=== PATIENT | male | born 1955 | race Caucasian/White ===

== ENCOUNTER 2016-09-25 19:55 | Inpatient (IN) | payer OTHER ==
[2016-09-25] MEDS ORDERED: SODIUM CHLORIDE 0.9% 500 ML IV STA (20:44)
--- NOTE | 2016-09-25 21:00 | ED ---
General Adult HPI <Xavi Navarro - Last Filed: 09/26/16 02:42> - General Source: EMS Mode of arrival: EMS Limitations: no limitations <Elda Emmanuel - Last Filed: 09/26/16 03:32> - General Chief complaint: Psychiatric Symptoms Stated complaint: Mental Health Time Seen by Provider: 09/25/16 20:15 - History of Present Illness Initial comments: 60-year-old male patient presents to emergency department today for evaluation after his neighbor called EMS due to concerns by his unsanitary living conditions. Neighbor states that patient seems to hallucinate and is often outside yelling at things that aren't there or people driving buying cars. Patient was found in his home with dried feces on his legs and in his shorts. Patient states that his house is filthy and that he has been depressed for the last 4 years. Patient states that 4 years ago his left him, shortly after he was laid off from his job and has been unable to find work since. Patient denies any suicidal or homicidal ideation. Patient denies any physical symptoms other than intermittent diarrhea. Patient admits to being intoxicated and drinking whiskey daily. He denies any headaches, dizziness, weakness, chest pain, back pain, abdominal pain, nausea, vomiting, constipation, hematuria , dysuria, urinary frequency, urinary urgency, fever, or chills. (Elda Emmanuel) - Related Data Allergies Allergy/AdvReac Type Severity Reaction Status Date / Time No Known Allergies Allergy Verified 09/25/16 19:57 Review of Systems ROS Other: All systems not noted in ROS Statement are negative. <Xavi Navarro - Last Filed: 09/26/16 02:42> ROS Other: All systems not noted in ROS Statement are negative. <Elda Emmanuel - Last Filed: 09/26/16 03:32> ROS Statement: Those systems with pertinent positive or pertinent negative responses have been documented in the HPI. Past Medical History Additional Past Medical History / Comment(s): Stent placement, incontinent of stool. History of Any Multi-Drug Resistant Organisms: None Reported Past Surgical History: No Surgical Hx Reported Past Psychological History: Depression Smoking Status: Current every day smoker Past Alcohol Use History: Abuse, Daily Past Drug Use History: Marijuana <Elda Emmanuel - Last Filed: 09/26/16 03:32> General Exam Limitations: no limitations General appearance: alert, in no apparent distress, appears intoxicated, other ( Thin appearing adult male) Head exam: Present: atraumatic, normocephalic, normal inspection Eye exam: Present: normal appearance, PERRL, EOMI, other. Absent: scleral icterus, conjunctival injection, periorbital swelling ENT exam: Present: normal exam, normal oropharynx, mucous membranes moist Neck exam: Present: normal inspection. Absent: tenderness, meningismus, lymphadenopathy Respiratory exam: Present: normal lung sounds bilaterally, wheezes (Scattered expiratory wheezes). Absent: respiratory distress, rales, rhonchi, stridor Cardiovascular Exam: Present: regular rate, normal rhythm, normal heart sounds. Absent: systolic murmur, diastolic murmur, rubs, gallop, clicks GI/Abdominal exam: Present: soft, normal bowel sounds. Absent: distended, tenderness, guarding, rebound, rigid Extremities exam: Present: normal inspection, full ROM, normal capillary refill , other (Dried feces on feet). Absent: tenderness, pedal edema, joint swelling , calf tenderness Back exam: Present: normal inspection Neurological exam: Present: alert, oriented X3, CN II-XII intact Psychiatric exam: Present: normal affect, normal mood Skin exam: Present: warm, dry, intact, normal color. Absent: rash <Elda Emmanuel - Last Filed: 09/26/16 03:32> Course <Xavi Navarro - Last Filed: 09/26/16 02:42> <Elda Emmanuel - Last Filed: 09/26/16 03:32> Vital Signs 09/25/16 09/25/16 09/26/16 19:58 23:43 02:04 Temperature 97.8 F 97.8 F Pulse Rate 64 64 89 Respiratory 15 16 18 Rate Blood Pressure 113/64 124/56 152/69 O2 Sat by Pulse 98 99 98 Oximetry 09/26/16 03:19 Temperature 98.4 F Pulse Rate 94 Respiratory 17 Rate Blood Pressure 156/67 O2 Sat by Pulse 97 Oximetry - Reevaluation(s) Reevaluation #1: 09/26/16 02:42 I did personally do a [id number] evaluation the patient. He was evaluated by the psychiatric service and found not to be a risk to himself at this time he is not suicidal or homicidal. He does however meet criteria for admission he is in the process of withdrawing from alcohol. He has had been withdrawals before. (Xavi Navarro) Reevaluation #2: 09/26/16 02:44 I did fill out a negative clinical certification (Xavi Navarro) Medical Decision Making - Lab Data Result diagrams: 09/25/16 21:10 09/25/16 21:10 <Xavi Navarro - Last Filed: 09/26/16 02:42> - Lab Data Result diagrams: 09/25/16 21:10 09/25/16 21:10 - Radiology Data Radiology results: report reviewed, image reviewed <Elda Emmanuel - Last Filed: 09/26/16 03:32> - Medical Decision Making 60-year-old male patient was brought in for mental health evaluation after neighbor called for concerns due to unsanitary living conditions. Baseline laboratory tests were completed and did show hypomagnesemia. Patient is chronic alcoholic. Once patient alcohol level was below the legal limit he was evaluated by EPS. Patient is not suicidal or homicidal at this time and nonicteric candidate for admission to the mental health unit. However at this time patient is withdrawing from alcohol. Patient will be admitted to observation for acute alcohol withdrawal. Magnesium will be replaced. (Elda Emmanuel) - Lab Data Lab Results 09/25/16 09/25/16 09/25/16 Range/Units 21:10 21:10 23:40 WBC 6.7 (3.8-10.6) k/uL RBC 4.18 L (4.30-5.90) m/uL Hgb 14.2 (13.0-17.5) gm/dL Hct 43.5 (39.0-53.0) % MCV 104.1 H (80.0-100.0) fL MCH 34.0 (25.0-35.0) pg MCHC 32.7 (31.0-37.0) g/dL RDW 14.2 (11.5-15.5) % Plt Count 153 (150-450) k/uL Neutrophils % 82 % Lymphocytes % 7 % Monocytes % 7 % Eosinophils % 1 % Basophils % 1 % Neutrophils # 5.5 (1.3-7.7) k/uL Lymphocytes # 0.5 L (1.0-4.8) k/uL Monocytes # 0.4 (0-1.0) k/uL Eosinophils # 0.0 (0-0.7) k/uL Basophils # 0.1 (0-0.2) k/uL Macrocytosis Slight Sodium 145 (137-145) mmol/L Potassium 4.3 (3.5-5.1) mmol/L Chloride 101 (98-107) mmol/L Carbon Dioxide 12 L (22-30) mmol/L Anion Gap 32 mmol/L BUN 18 (9-20) mg/dL Creatinine 0.60 L (0.66-1.25) mg/dL Est GFR (MDRD) Af Amer >60 (>60 ml/min/1.73 sqM) Est GFR (MDRD) Non-Af >60 (>60 ml/min/1.73 sqM) Glucose 78 (74-99) mg/dL Calcium 8.9 (8.4-10.2) mg/dL Magnesium 1.3 L (1.6-2.3) mg/dL Total Bilirubin 1.2 (0.2-1.3) mg/dL AST 127 H (17-59) U/L ALT 47 (21-72) U/L Alkaline Phosphatase 133 H (38-126) U/L Total Protein 7.0 (6.3-8.2) g/dL Albumin 4.5 (3.5-5.0) g/dL Urine Color Yellow Urine Appearance Clear (Clear) Urine pH 5.5 (5.0-8.0) Ur Specific Dawson 1.016 (1.001-1.035) Urine Protein 1+ H (Negative) Urine Glucose (UA) Negative (Negative) Urine Ketones 4+ H (Negative) Urine Blood Moderate H (Negative) Urine Nitrite Negative (Negative) Urine Bilirubin Negative (Negative) Urine Urobilinogen <2.0 (<2.0) mg/dL Ur Leukocyte Esterase Negative (Negative) Urine RBC 2 (0-5) /hpf Urine WBC <1 (0-5) /hpf Ur Squamous Epith Cells 1 (0-4) /hpf Urine Mucus Rare H (None) /hpf Urine Opiates Screen Not Detected (NotDetected) Ur Oxycodone Screen Not Detected (NotDetected) Urine Methadone Screen Not Detected (NotDetected) Ur Propoxyphene Screen Not Detected (NotDetected) Ur Barbiturates Screen Not Detected (NotDetected) U Tricyclic Antidepress Not Detected (NotDetected) Ur Phencyclidine Scrn Not Detected (NotDetected) Ur Amphetamines Screen Not Detected (NotDetected) U Methamphetamines Scrn Not Detected (NotDetected) U Benzodiazepines Scrn Not Detected (NotDetected) Urine Cocaine Screen Not Detected (NotDetected) U Marijuana (THC) Screen Detected H (NotDetected) - Radiology Data Two-view x-ray of the chest was obtained and showed underlying emphysematous changes with flattened hemidiaphragms redemonstrated. There is no focal air space opacity, pleural effusion, or pneumothorax seen. The cardiac silhouette size is within normal limits. The osseous structures are intact. Impression by Dr. Bae reveals no acute cardio transportation planner process. No significant change from prior. (Elda Emmanuel) Disposition <Xavi Navarro - Last Filed: 09/26/16 02:42> Decision to Admit Reason: Admit from EC Decision Date: 09/26/16 Decision Time: 02:59 <Elda Emmanuel - Last Filed: 09/26/16 03:32> Clinical Impression: Alcohol intoxication, Alcohol withdrawal, Dehydration, Hypomagnesemia syndrome Disposition: ADMITTED IP TO THIS HOSP Condition: Fair
[2016-09-25] MEDS: SODIUM CHLORIDE 0.9% 1,000 ML with MVI, ADULT NO.4 WITH VIT K 10 ML, THIAMINE 100 MG, F... IV ONE ×8 (21:08→21:21)
--- NOTE | 2016-09-25 21:20 | XR ---
EXAMINATION TYPE: XR chest 2V DATE OF EXAM: 09/25/2016 COMPARISON: Chest x-ray October 21, 2009. HISTORY: Chest pain per order. TECHNIQUE: Frontal and lateral views of the chest are obtained. FINDINGS: Underlying emphysematous change is not excluded with flattened hemidiaphragms redemonstrate d. There is no focal air space opacity, pleural effusion, or pneumothorax seen. The cardiac silhouet te size is within normal limits. The osseous structures are intact. IMPRESSION: No acute cardiopulmonary process. No significant change from prior.
[2016-09-25 21:22] LABS: Basophils # (A) 0.1 k/uL (0-0.2); Basophils % (A) 1 %; CHCM 31.8; Eosinophils % (A) 1 %; HCT 43.5 % (39.0-53.0); HDW 2.02; HGB 14.2 gm/dL (13.0-17.5); Luc # (Auto) 0.18; Luc % (Auto) 3; Lymphocytes # (A) 0.5 k/uL (1.0-4.8); Lymphocytes % (A) 7 %; MCHC 32.7 g/dL (31.0-37.0); MCV 104.1 fL (80.0-100.0); Macrocytosis Slight; Mean Platelet Volume 7.5; Monocytes # (A) 0.4 k/uL (0-1.0); Monocytes % (A) 7 %; Neutrophils # (A) 5.5 k/uL (1.3-7.7); Neutrophils % (A) 82 %; RBC 4.18 m/uL (4.30-5.90); RDW 14.2 % (11.5-15.5); WBC 6.7 k/uL (3.8-10.6); WBC (Perox) 6.68
[2016-09-25 21:34] LABS: ALT 47 U/L (21-72); AST 127 U/L (17-59); Alkaline Phosphatase 133 U/L (38-126); Anion Gap 32 mmol/L; Blood Urea Nitrogen 18 mg/dL (9-20); Calcium 8.9 mg/dL (8.4-10.2); Carbon Dioxide 12 mmol/L (22-30); Chloride 101 mmol/L (98-107); Glucose 78 mg/dL (74-99); Magnesium 1.3 mg/dL (1.6-2.3); Non-African American GFR(MDRD) >60 (>60 ml/min/1.73 sqM); Potassium 4.3 mmol/L (3.5-5.1); Sodium 145 mmol/L (137-145); Total Bilirubin 1.2 mg/dL (0.2-1.3)
[2016-09-25 23:54] LABS: Appearance,Urine Clear (Clear); Bilirubin,Urine Negative (Negative); Glucose,Urine (UA) Negative (Negative); Ketones,Urine 4+ (Negative); Leukocyte Esterase,Urine Negative (Negative); Mucus,Urine Rare /hpf; Nitrite,Urine Negative (Negative); PH, Urine 5.5 (5.0-8.0); Particle Count 1634; Protein,Urine 1+ (Negative); RBC,Urine 2 /hpf (0-5); Specific Gravity,Urine 1.016 (1.001-1.035); Squamous Epithelial Cell,Urine 1 /hpf (0-4); UA Billing (MACRO vs. MICRO) MICRO; Urobilinogen,Urine <2.0 mg/dL (<2.0); WBC,Urine <1 /hpf (0-5)
[2016-09-26] MEDS ORDERED: NALOXONE 0.4 MG/ML 1 ML VIAL IV PRN (02:52)
[2016-09-26] MEDS ORDERED: LORazepam 2 MG/ML SYRINGE IV PRN (02:54)
[2016-09-26] MEDS ORDERED: Magnesium Replacement Protocol 1 EACH MISC MISCELLANE PRN (02:57)
[2016-09-26] MEDS: MAGNESIUM SULFATE-D5W PMX 1 GM in DEXTROSE/WATER 1 100ML.BAG IVPB SCH ×3 (04:38→09:06)
[2016-09-26] MEDS ORDERED: ONDANSETRON 4 MG/2 ML VIAL IVP PRN (06:35)
[2016-09-26] MEDS: LORazepam 2 MG/ML SYRINGE IV PRN ×4 (11:58→22:21)
[2016-09-26] MEDS ORDERED: SODIUM CHLORIDE 0.9% 1,000 ML IV SCH (14:15)
--- NOTE | 2016-09-26 15:16 | P.HPIM ---
History of Present Illness 60-year-old alcohol ache was brought in after he was petitioned by the neighbors as he was found in stools at home. Patient is completely confused, unsure whether it's because of Ativan for alcohol withdrawal are actually Wernicke's encephalopathy. Patient will be started on thiamine unable to get any history from now as he is confused. Patient was apparently having intermittent diarrhea patient when he came in was intoxicated. Patient apparently drinks 1 pint of hard liquor every day Review of Systems Unable to pain due to his clinical condition Past Medical History Additional Past Medical History / Comment(s): Stent placement, incontinent of stool. History of Any Multi-Drug Resistant Organisms: None Reported Past Surgical History: No Surgical Hx Reported Past Psychological History: Depression Smoking Status: Current every day smoker Past Alcohol Use History: Abuse, Daily Past Drug Use History: Marijuana Medications and Allergies Home Medications Medication Instructions Recorded Confirmed Type No Known Home Medications [No 09/26/16 09/26/16 History Known Home Medications] Allergies Allergy/AdvReac Type Severity Reaction Status Date / Time No Known Allergies Allergy Verified 09/26/16 09:05 Physical Exam Vitals: Vital Signs Temp Pulse Pulse Resp BP BP Pulse Ox 09/26/16 07:00 97.8 F 78 18 138/54 98 09/26/16 04:20 98.8 F 99 18 152/78 93 L 09/26/16 03:19 98.4 F 94 17 156/67 97 09/26/16 02:04 97.8 F 89 18 152/69 98 09/25/16 23:43 64 16 124/56 99 09/25/16 19:58 97.8 F 64 15 113/64 98 Intake and Output 09/26/16 09/26/16 09/26/16 06:59 14:59 22:59 Other: Voiding Method Diaper Diaper Incontinent Incontinent # Voids 0 PHYSICAL EXAMINATION: GENERAL: The patient is alert and confused, not in any acute distress. Thin built HEENT: Pupils are round and equally reacting to light. EOMI. No scleral icterus. No conjunctival pallor. Normocephalic, atraumatic. No pharyngeal erythema. No thyromegaly. CARDIOVASCULAR: S1 and S2 present. No murmurs, rubs, or gallops. PULMONARY: Chest is clear to auscultation, no wheezing or crackles. ABDOMEN: Soft, nontender, nondistended, normoactive bowel sounds. No palpable organomegaly. MUSCULOSKELETAL: No joint swelling or deformity. EXTREMITIES: No cyanosis, clubbing, or pedal edema. NEUROLOGICAL: Gross neurological examination did not reveal any focal deficits. Completely confused SKIN: No rashes. Results CBC & Chem 7: 09/25/16 21:10 09/25/16 21:10 Labs: Abnormal Lab Results - Last 24 Hours (Table) 09/25/16 09/25/16 09/25/16 Range/Units 21:10 21:10 23:40 RBC 4.18 L (4.30-5.90) m/uL MCV 104.1 H (80.0-100.0) fL Lymphocytes # 0.5 L (1.0-4.8) k/uL Carbon Dioxide 12 L (22-30) mmol/L Creatinine 0.60 L (0.66-1.25) mg/dL Magnesium 1.3 L (1.6-2.3) mg/dL AST 127 H (17-59) U/L Alkaline Phosphatase 133 H (38-126) U/L Urine Protein 1+ H (Negative) Urine Ketones 4+ H (Negative) Urine Blood Moderate H (Negative) Urine Mucus Rare H (None) /hpf U Marijuana (THC) Screen Detected H (NotDetected) Thrombosis Risk Factor Assmnt - Choose All That Apply Each Risk Factor Represents 2 Points: Age 61-74 years Other congenital or acquired thrombophilia - If yes, enter type in comment: No Thrombosis Risk Factor Assessment Total Risk Factor Score: 2 Thrombosis Risk Factor Assessment Level: Low Risk Assessment and Plan Plan: #1 alcohol intoxication #2 metabolic encephalopathy and toxic encephalopathy from excess alcohol use. #3 alcohol withdrawal: Patient will be monitored for all call withdrawal patient will be on Ativan CIWA protocol. #4 anion gap metabolic acidosis: Secondary to excessive alcohol in the system, patient's lactic acid is within normal limits. Patient will be on D5 half- normal saline at 1 25 mL/h. #4 alcoholic hepatitis #5 hypomagnesemia: Secondary to excess alcohol use which will be supplemented #6 ketonuria: Secondary to starvation ketosis #7 macrocytosis secondary to excess alcohol use Patient will be continued on D5 half-normal saline, thiamine multivitamin supplementation and Ativan withdrawal precautions
[2016-09-26] MEDS ORDERED: SODIUM CHLORIDE 0.9% 1,000 ML BAG ONE (15:51)
[2016-09-26] MEDS: 1: MVI, ADULT NO.4 WITH VIT K 10 ML, THIAMINE 100 MG, FOLIC ACID 1 MG in SODIUM CHLORIDE IV SCH ×4 (15:51)
[2016-09-26] MEDS: THIAMINE 100 MG TAB PO SCH (15:52)
[2016-09-26] MEDS: DEXTROSE 5%-0.45% NACL 1,000 ML IV SCH (15:52)
[2016-09-27] MEDS: 1: MVI, ADULT NO.4 WITH VIT K 10 ML, THIAMINE 100 MG, FOLIC ACID 1 MG in SODIUM CHLORIDE IV SCH ×8 (02:19→12:01)
[2016-09-27] MEDS: DEXTROSE 5%-0.45% NACL 1,000 ML IV SCH ×3 (04:47→14:42)
[2016-09-27 09:00] LABS: CH 33.7; CHCM 32.6; HCT 35.5 % (39.0-53.0); HDW 2.02; HGB 11.9 gm/dL (13.0-17.5); MCH 34.6 pg (25.0-35.0); MCHC 33.5 g/dL (31.0-37.0); MCV 103.5 fL (80.0-100.0); Macrocytosis Slight; Mean Platelet Volume 9.3; RBC 3.43 m/uL (4.30-5.90); RDW 14.4 % (11.5-15.5); WBC 6.3 k/uL (3.8-10.6)
[2016-09-27 09:05] LABS: ALT 38 U/L (21-72); AST 85 U/L (17-59); Alkaline Phosphatase 98 U/L (38-126); Anion Gap 17 mmol/L; Blood Urea Nitrogen 9 mg/dL (9-20); Calcium 8.4 mg/dL (8.4-10.2); Carbon Dioxide 20 mmol/L (22-30); Chloride 97 mmol/L (98-107); Glucose 152 mg/dL (74-99); Magnesium 1.4 mg/dL (1.6-2.3); Non-African American GFR(MDRD) >60 (>60 ml/min/1.73 sqM); Potassium 3.4 mmol/L (3.5-5.1); Sodium 134 mmol/L (137-145); Total Bilirubin 1.8 mg/dL (0.2-1.3); Total Protein 5.7 g/dL (6.3-8.2)
[2016-09-27] MEDS: MAGNESIUM SULFATE-D5W PMX 1 GM in DEXTROSE/WATER 1 100ML.BAG IVPB SCH ×3 (11:03→14:41)
[2016-09-27] MEDS ORDERED: POTASSIUM CHLORIDE ER 20 MEQ TAB.ER PO ONE (12:00)
[2016-09-27] MEDS ORDERED: SODIUM CHLORIDE 0.9% 1,000 ML BAG ONE (12:01)
[2016-09-27] MEDS: THIAMINE 100 MG TAB PO SCH ×2 (12:06→17:23)
--- NOTE | 2016-09-27 14:21 | P.PN ---
Progress Note - Text I attempted to see this patient for a psychiatric consultation however the patient was not able to respond to questions to achieve an evaluation. I will return tomorrow to evaluate the patient to see if he is better able to cooperate. Currently patient has symptoms of delirium and was only oriented to person. I spoke with social work who had seen the patient earlier today and and agree with decision to seek guardianship. Per the information on the chart regarding how the patient came to the hospital he was petitioned by his neighbors who found him in a home sitting in feces. Patient has not been seen here since 2009.
[2016-09-27] MEDS: LORazepam 2 MG/ML SYRINGE IV PRN (14:42)
--- NOTE | 2016-09-27 15:57 | P.PN ---
Subjective Patient is still having significant withdrawals unable to obtain any History from the patient. Physical therapy evaluated the patient and patient was evaluated by psychiatric and they're recommending guardianship. Objective - Vital Signs Vital signs: Vital Signs Temp 97.3 F L 09/27/16 14:38 Pulse 110 H 09/27/16 14:38 Resp 20 09/27/16 14:38 BP 121/87 09/27/16 14:38 Pulse Ox 97 09/27/16 14:38 Intake & Output 09/26/16 09/27/16 09/27/16 18:59 06:59 18:59 Intake Total 1561.2 700 Balance 1561.2 700 Intake: Intake, IV Titration 1011.2 700 Amount Dextrose 5%-0.45% NaCl 1, 400 000 ml @ 125 mls/hr IV . Q8H HANDY Rx#:[id number] Magnesium Sulfate-D5w Pmx 300 1 gm In Dextrose/Water 1 100ml.bag @ 100 mls/hr IVPB Q1H HANDY Rx#: [id number] Mvi, Adult No.4 with Vit 1011.2 K 10 ml Thiamine 100 mg Folic Acid 1 mg In Sodium Chloride 0.9% 1,000 ml @ 100 mls/hr IV .BY DURATION HANDY Rx#: [id number] Oral 550 Other: Voiding Method Diaper Diaper Diaper Incontinent Incontinent Incontinent # Voids 3 3 4 # Bowel Movements 2 2 - Exam PHYSICAL EXAMINATION: GENERAL: The patient is alert and confused, not in any acute distress. Thin built HEENT: Pupils are round and equally reacting to light. EOMI. No scleral icterus. No conjunctival pallor. Normocephalic, atraumatic. No pharyngeal erythema. No thyromegaly. CARDIOVASCULAR: S1 and S2 present. No murmurs, rubs, or gallops. PULMONARY: Chest is clear to auscultation, no wheezing or crackles. ABDOMEN: Soft, nontender, nondistended, normoactive bowel sounds. No palpable organomegaly. MUSCULOSKELETAL: No joint swelling or deformity. EXTREMITIES: No cyanosis, clubbing, or pedal edema. NEUROLOGICAL: Gross neurological examination did not reveal any focal deficits. Completely confused SKIN: No rashes. - Labs CBC & Chem 7: 09/27/16 08:21 09/27/16 08:21 Labs: Abnormal Lab Results - Last 24 Hours (Table) 09/27/16 09/27/16 Range/Units 08:21 08:21 RBC 3.43 L (4.30-5.90) m/uL Hgb 11.9 L (13.0-17.5) gm/dL Hct 35.5 L (39.0-53.0) % MCV 103.5 H (80.0-100.0) fL Plt Count 96 L (150-450) k/uL Sodium 134 L (137-145) mmol/L Potassium 3.4 L (3.5-5.1) mmol/L Chloride 97 L (98-107) mmol/L Carbon Dioxide 20 L (22-30) mmol/L Creatinine 0.39 L (0.66-1.25) mg/dL Glucose 152 H (74-99) mg/dL Magnesium 1.4 L (1.6-2.3) mg/dL Total Bilirubin 1.8 H (0.2-1.3) mg/dL AST 85 H (17-59) U/L Total Protein 5.7 L (6.3-8.2) g/dL Albumin 3.4 L (3.5-5.0) g/dL Assessment and Plan Plan: #1 alcohol intoxication #2 metabolic encephalopathy and toxic encephalopathy from excess alcohol use. #3 alcohol withdrawal: Patient will be monitored for all call withdrawal patient will be on Ativan CIWA protocol. #4 anion gap metabolic acidosis: Secondary to excessive alcohol in the system, patient's lactic acid is within normal limits. Patient will be on D5 half- normal saline at 1 25 mL/h. #4 alcoholic hepatitis #5 hypomagnesemia: Secondary to excess alcohol use which will be supplemented #6 ketonuria: Secondary to starvation ketosis #7 macrocytosis secondary to excess alcohol use #8 valid to the patient and the regarding guardianship an outpatient.
[2016-09-27] MEDS: SODIUM CHLORIDE 0.9% 1,000 ML IV SCH (17:23)
[2016-09-28] MEDS: LORazepam 2 MG/ML SYRINGE IV PRN ×2 (00:27→05:19)
[2016-09-28] MEDS: SODIUM CHLORIDE 0.9% 1,000 ML IV SCH ×3 (05:18→19:58)
[2016-09-28 09:11] LABS: ALT 36 U/L (21-72); AST 84 U/L (17-59); Alkaline Phosphatase 98 U/L (38-126); Anion Gap 14 mmol/L; Blood Urea Nitrogen 8 mg/dL (9-20); Calcium 8.7 mg/dL (8.4-10.2); Carbon Dioxide 19 mmol/L (22-30); Chloride 99 mmol/L (98-107); Glucose 83 mg/dL (74-99); Magnesium 1.6 mg/dL (1.6-2.3); Non-African American GFR(MDRD) >60 (>60 ml/min/1.73 sqM); Potassium 3.7 mmol/L (3.5-5.1); Sodium 132 mmol/L (137-145); Total Bilirubin 1.9 mg/dL (0.2-1.3); Total Protein 5.8 g/dL (6.3-8.2)
[2016-09-28] MEDS: THIAMINE 100 MG TAB PO SCH ×2 (11:02→15:18)
--- NOTE | 2016-09-28 12:39 | P.PN ---
Subjective Patient is still having significant withdrawals unable to obtain any History from the patient. Physical therapy evaluated the patient and patient was evaluated by psychiatric and they're recommending guardianship. 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 Patient is awaiting to go to subacute rehabilitation awaiting guardianship today. Objective - Vital Signs Vital signs: Vital Signs Temp 98.0 F 09/28/16 07:00 Pulse 99 09/28/16 07:00 Resp 18 09/28/16 07:00 BP 121/95 09/28/16 07:00 Pulse Ox 94 L 09/27/16 23:00 Intake & Output 09/27/16 09/28/16 09/28/16 18:59 06:59 18:59 Intake Total 1240 850 Balance 1240 850 Weight 49.895 kg Intake: Intake, IV Titration 700 Amount Dextrose 5%-0.45% NaCl 1, 400 000 ml @ 125 mls/hr IV . Q8H HANDY Rx#:[id number] Magnesium Sulfate-D5w Pmx 300 1 gm In Dextrose/Water 1 100ml.bag @ 100 mls/hr IVPB Q1H HANDY Rx#: [id number] Oral 540 850 Other: Voiding Method Diaper Diaper Diaper Incontinent Incontinent Incontinent # Voids 3 8 # Bowel Movements 2 6 - Exam PHYSICAL EXAMINATION: GENERAL: The patient is alert and confused, not in any acute distress. Thin built HEENT: Pupils are round and equally reacting to light. EOMI. No scleral icterus. No conjunctival pallor. Normocephalic, atraumatic. No pharyngeal erythema. No thyromegaly. CARDIOVASCULAR: S1 and S2 present. No murmurs, rubs, or gallops. PULMONARY: Chest is clear to auscultation, no wheezing or crackles. ABDOMEN: Soft, nontender, nondistended, normoactive bowel sounds. No palpable organomegaly. MUSCULOSKELETAL: No joint swelling or deformity. EXTREMITIES: No cyanosis, clubbing, or pedal edema. NEUROLOGICAL: Gross neurological examination did not reveal any focal deficits. Completely confused SKIN: No rashes. - Labs CBC & Chem 7: 09/27/16 08:21 09/28/16 08:07 Labs: Abnormal Lab Results - Last 24 Hours (Table) 09/28/16 Range/Units 08:07 Sodium 132 L (137-145) mmol/L Carbon Dioxide 19 L (22-30) mmol/L BUN 8 L (9-20) mg/dL Creatinine 0.39 L (0.66-1.25) mg/dL Total Bilirubin 1.9 H (0.2-1.3) mg/dL AST 84 H (17-59) U/L Total Protein 5.8 L (6.3-8.2) g/dL Albumin 3.3 L (3.5-5.0) g/dL Assessment and Plan Plan: #1 alcohol intoxication #2 metabolic encephalopathy and toxic encephalopathy from excess alcohol use. Improved patient does have chronic encephalopathy and memory issues secondary to chronic alcoholism and I do not believe high-dose thiamine will and if it is encephalopathy. #3 alcohol withdrawal: Patient will be monitored for all call withdrawal patient will be on Ativan [place] protocol. Withdrawals are better #4 anion gap metabolic acidosis: Secondary to excessive alcohol in the system, patient's lactic acid is within normal limits. Patient will be on D5 half- normal saline at 1 25 mL/h. #4 alcoholic hepatitis #5 hypomagnesemia: Secondary to excess alcohol use which will be supplemented #6 ketonuria: Secondary to starvation ketosis #7 macrocytosis secondary to excess alcohol use
--- NOTE | 2016-09-28 13:00 | P.CN ---
Psychiatric Consult - . Consult date: 09/28/16 Consult:: 09/28/16 12:32 Identification and Reason for Consult: Patient is a 60-year-old male who was brought to the hospital after the neighbors petitioned the patient due to finding him in his home in his own feces. Consult was requested due to confusion and hallucinations and consideration of the need for guardianship. I attempted to see the patient yesterday however he was to confused to participate in the interview and I returned today after speaking with the high school social studies teacher yesterday. Patient was seen alone in his room no family members were present. Patient's chart was reviewed. History of Present Illness: Patient was admitted after being found by his neighbors in his home in his own feces. Patient is currently withdrawing from alcohol. When I spoke with the high school social studies teacher yesterday she stated that the patient lives alone and his left him 4 years ago and the patient has no contacts listed in the chart. Patient was in his hospital bed and was interviewed. Patient states that he is here to get well but could not tell me what illness he had. Patient states that he was living alone and states that he had stopped drinking alcohol and had withdrawals. Patient states that he was driving himself to the store and I asked him if he had run out of alcohol and he thought he had. Patient is a poor historian. Patient states that he was at [facility] 3 months ago and returned home in July. He states that he has been in rehab for time in the past year. Patient was unable to give any further information regarding his prior alcohol treatment and states that he took himself there. Patient reports that he was drinking about a pint a day but states he was in withdrawals at home because he ran out of alcohol. Patient is unable to elaborate further. Past Psychiatric History: Patient states that he was seen after his divorce for depression and he thought this was last year and states he was on an unknown antidepressant. He reports that he has been in alcohol rehab in the past but could not tell me how many times and states he's been at [facility] and [facility] and reports he was last at [facility] 3 months ago. Past Medical/Surgical History: Patient confirms that he had stents placed, the rest of his medical history is obtained from the chart hypertension, coronary artery disease is unable to tell me if he has had any surgeries in the past. Current Medications Sodium Chloride (Saline 0.9%) 1,000 mls @ 100 mls/hr IV .Q10H [facility] Last Admin: 09/28/16 11:03 Dose: 100 mls/hr Lorazepam (Ativan) 1 mg IV Q2HR PRN PRN Reason: CIWA 8 or 9 Last Admin: 09/28/16 05:19 Dose: 1 mg Lorazepam (Ativan) 1 mg IV Q1HR PRN PRN Reason: CIWA 10 to 15 Last Admin: 09/26/16 18:20 Dose: 1 mg Miscellaneous Information (Magnesium Per Protocol) 1 each MISCELLANE DAILY PRN ; Protocol PRN Reason: Per Protocol Naloxone HCl (Narcan) 0.2 mg IV Q2M PRN PRN Reason: Opioid Reversal Ondansetron HCl (Zofran) 4 mg IVP Q6HR PRN PRN Reason: Nausea And Vomiting Thiamine HCl (Vitamin B-1) 100 mg PO BID@1200,1700 [facility] Last Admin: 09/28/16 11:02 Dose: 100 mg Family History: Unable to obtain as the patient is not able to give this information. Social History: Patient states he lives alone, he states he was a year ago from his and has 2 children and 2 granddaughters states he has contact somewhat with his children. 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 Patient was unable to give any further social history. Substance Use History: Patient states that he's been using a pint a day of alcohol further information regarding his use as not obtainable from the patient and he states he uses marijuana every 6 months to ease the pain, he denied any other substance use. Legal History: Unable to obtain Mental Status: Appearance/Attitude: Patient is a 60-year-old male who appears older than his stated age, appears malnourished, made intermittent eye contact and is difficult to determine if he had hearing difficulties or not as I needed to speak loudly and close to the patient for him to hear me. Behavior: Patient was not exhibiting any psychomotor agitation. He was not perspiring and did not appear tremulous. Speech/Language: Patient only responded to my questions, his speech was somewhat garbled and he spoke in a soft voice. Thought Process: Patient needed to have questions repeated at times his answers were not relevant him unable to determine if this is because he did not understand the question or could not hear the question, after repeating some questions several times his answers were more relevant. Thought Content: Patient denied auditory hallucinations and stated that he was not seeing things and denied that he had been, patient did not appear to be responding to internal stimuli, nor did he appear to be having visual hallucinations. No delusions or paranoid ideation were elicited. Patient stated that he was here to get well, but could not tell me for what illness he was being treated. Patient reported that he had been withdrawing at home from alcohol and states it was due to his running out of alcohol. Patient states he lives alone and was caring for his ADLs, that he was driving to the store to go shopping. Suicidal/Homicidal Ideation: Patient denied any suicidal thoughts or homicidal thoughts at this time. Sensorium/Cognition: Patient was alert, there is no disturbance of his awareness and he was oriented to person, stated he was at [facility], could not name the month but thought it was Fall and the year was 1977. When asked how old patient was he responded 61, stated his birthday was 10/07/1965. Patient after 2 attempts was able to repeat 3 items after me but was unable to recall any of them. When asked what city we were in he responded [place]. Mood/Affect: Patient's mood is blunted as is his affect. Insight/Judgement: Patient's insight and judgment are impaired. Assessment: Patient is a poor historian and some information was obtained from the chart, patient was last admitted in 2009 and at that time stents were placed. When I spoke with the high school social studies teacher she informed me that the patient's had left him 4 years ago and it he does live alone there are no contacts listed on the chart. Patient is alert today, denying visual hallucinations and there is no disturbance of his awareness although he remains disoriented to date and location. Patient was reporting seeing a dog in his room yesterday which he is no longer doing today. His delirium appears to be resolving. Diagnosis: Alcohol withdrawal delirium, resolving; alcohol use disorder Plan: Patient was seen today and was alert with no alteration in his attention or awareness during the interview however the patient continues to have difficulty providing any historical information. Patient remains disoriented to time and city but is oriented to person and situation. Patient was unable to tell me why he was in the hospital only stating "to get well". Patient states that he ran out of alcohol at home and began to have withdrawals but is unable to report to me what connection that had with his coming into the hospital. Patient appears thin and malnourished, was found at home by neighbors in his own feces and so it is questionable how well this gentleman was caring for his ADLs prior to admission. Patient's delirium appears to be resolving but he has no understanding of why he is in the hospital, he does report prior alcohol treatment of his own volition but restarts using alcohol soon after discharge. After seeing the patient today I continue to feel that a guardian should be appointed due to the patient's inability to care for his ADLs as evidenced by his malnourished state and the condition in which he was found at home. 09/28/16 12:33 09/28/16 12:52
[2016-09-29] MEDS: SODIUM CHLORIDE 0.9% 1,000 ML IV SCH ×2 (08:00→16:23)
--- NOTE | 2016-09-29 09:23 | P.DS ---
Providers Date of admission: 09/26/16 02:35 Attending physician: Melly Moulton Consults: 09/27/16 11:44 Consult Physician Urgent Consulting Provider: Dena Barboza Consult Reason/Comments: confusion/hallucinations, need for guardianship Do you want consulting provider notified?: Yes Primary care physician: Stated None Hospital Course: Patient is still having significant withdrawals unable to obtain any History from the patient. Physical therapy evaluated the patient and patient was evaluated by psychiatric and they're recommending guardianship. 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 Patient is awaiting to go to subacute rehabilitation awaiting guardianship today. 09/29/2016 Patient's withdrawal significant improved patient confusion improved as well patient is alert oriented 2 today. Patient to be discharged to subacute recommendation. Patient does have tachycardia probably related to his chronic alcohol use and some withdrawal but for workup for his sinus tachycardia with a d-dimer and a TSH and d-dimer is elevated we'll obtain a CT to rule out pulmonary embolism with that is negative patient will be discharged today. PHYSICAL EXAMINATION: GENERAL: The patient is alert and oriented x2, not in any acute distress. Well developed, well nourished. HEENT: Pupils are round and equally reacting to light. EOMI. No scleral icterus. No conjunctival pallor. Normocephalic, atraumatic. No pharyngeal erythema. No thyromegaly. CARDIOVASCULAR: S1 and S2 present. No murmurs, rubs, or gallops. PULMONARY: Chest is clear to auscultation, no wheezing or crackles. ABDOMEN: Soft, nontender, nondistended, normoactive bowel sounds. No palpable organomegaly. MUSCULOSKELETAL: No joint swelling or deformity. EXTREMITIES: No cyanosis, clubbing, or pedal edema. NEUROLOGICAL: Gross neurological examination did not reveal any focal deficits. SKIN: No rashes. #1 alcohol intoxication #2 metabolic encephalopathy and toxic encephalopathy from excess alcohol use. Improved patient does have chronic encephalopathy and memory issues secondary to chronic alcoholism and I do not believe high-dose thiamine will and if it is encephalopathy. #3 alcohol withdrawal: Withdrawal symptoms improved patient requirement for Ativan is significantly low #4 anion gap metabolic acidosis: Resolved now #4 alcoholic hepatitis #5 hypomagnesemia: Improved with supplementation #6 ketonuria: Secondary to starvation ketosis #7 macrocytosis secondary to excess alcohol use Patient Condition at Discharge: Fair Plan - Discharge Summary New Discharge Prescriptions: New LORazepam [Ativan] 1 mg PO TID PRN #20 tab PRN Reason: Alcohol Withdrawal Metoprolol Tartrate [Lopressor] 25 mg PO BID #60 tab Omeprazole [PriLOSEC] 20 mg PO AC-BRKFST #14 day Thiamine [Vitamin B-1] 100 mg PO DAILY #30 tab Discharge Medication List LORazepam [Ativan] 1 mg PO TID PRN #20 tab 09/29/16 [Rx] Metoprolol Tartrate [Lopressor] 25 mg PO BID #60 tab 09/29/16 [Rx] Omeprazole [PriLOSEC] 20 mg PO AC-BRKFST #14 day 09/29/16 [Rx] Thiamine [Vitamin B-1] 100 mg PO DAILY #30 tab 09/29/16 [Rx] Follow up Appointment(s)/Referral(s): None,Stated [Primary Care Provider] - 1-2 days Discharge Disposition: TRANSFER TO SNF/ECF
[2016-09-29 09:29] VITALS: BMI 16.2
[2016-09-29] MEDS: METOPROLOL TARTRATE 25 MG TAB PO SCH ×2 (09:51→21:28)
[2016-09-29] MEDS ORDERED: RX INFO: IV CONTRAST WAS GIVEN 1 EACH MISC MISCELLANE PRN (10:07)
[2016-09-29] MEDS: THIAMINE 100 MG TAB PO SCH ×2 (11:45→16:22)
--- NOTE | 2016-09-29 11:47 | CT ---
EXAMINATION TYPE: CT angio chest DATE OF EXAM: 09/29/2016 COMPARISON: Chest x-ray 09/25/2016 HISTORY: PE CT DLP: 440 mGycm Automated exposure control for dose reduction was used. CONTRAST: CTA scan of the thorax is performed with IV Contrast, patient injected with 100 ml mL of Omnipaque 35 0, pulmonary embolism protocol. MIP images are created and reviewed. 3D reconstructed images are cr eated on an independent workstation and reviewed. FINDINGS: LUNGS: Extensive centrilobular emphysematous changes are present within the lungs. There is bronchial wall thickening. Left upper lobe soft tissue nodule is present measuring approximately 10 mm in size with some suggestion of spiculated margins. There are small pleural effusions and probable basilar a telectasis AORTA: Ascending aorta measures 4.4 cm. MEDIASTINUM: There is satisfactory enhancement of the pulmonary artery and its central branches, ther e is however some lack of enhancement of subsegmental branch in the right lower lobe, axial images 11 3, 114 and 115, 106 and 107. There are no greater than 1 cm hilar or mediastinal lymph nodes. Pulmon kaden artery is dilated at 3.1 cm, consider pulmonary artery hypertension. OTHER: The heart is enlarged. The liver shows low attenuation likely due to hepatic steatosis. IMPRESSION: WHILE DEFINITIVE FILLING DEFECT TO SUGGEST PULMONARY EMBOLISM IS NOT IDENTIFIED, CANNOT EXCLUDE PULMO NARY EMBOLISM IN THE RIGHT LOWER LOBE. LEFT UPPER LOBE LUNG MASS, FOLLOW-UP IS RECOMMENDED. ASCENDING AORTIC ANEURYSM. CORRELATE FOR PULMONARY ARTERY HYPERTENSION. EMPHYSEMA. ADDITIONAL FINDINGS ABOVE.
[2016-09-30] MEDS: SODIUM CHLORIDE 0.9% 1,000 ML IV SCH (04:50)
[2016-09-30] MEDS: LORazepam 2 MG/ML SYRINGE IV PRN (05:17)
[2016-09-30 07:39] VITALS: RESP 16
[2016-09-30] MEDS: METOPROLOL TARTRATE 25 MG TAB PO SCH ×2 (10:19→21:58)
[2016-09-30] MEDS ORDERED: SODIUM CHLORIDE 0.9% 1,000 ML IV ONE (11:21)
[2016-09-30] MEDS: THIAMINE 100 MG TAB PO SCH ×2 (11:28→16:58)
--- NOTE | 2016-09-30 11:59 | P.DS ---
Providers Date of admission: 09/26/16 02:35 Attending physician: Melly Moulton Consults: 09/27/16 11:44 Consult Physician Urgent Consulting Provider: Dena Barboza Consult Reason/Comments: confusion/hallucinations, need for guardianship Do you want consulting provider notified?: Yes Primary care physician: Stated None Hospital Course: Patient is still having significant withdrawals unable to obtain any History from the patient. Physical therapy evaluated the patient and patient was evaluated by psychiatric and they're recommending guardianship. 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 Patient is awaiting to go to subacute rehabilitation awaiting guardianship today. 09/29/2016 Patient's withdrawal significant improved patient confusion improved as well patient is alert oriented 2 today. Patient to be discharged to subacute recommendation. Patient does have tachycardia probably related to his chronic alcohol use and some withdrawal but for workup for his sinus tachycardia with a d-dimer and a TSH and d-dimer is elevated we'll obtain a CT to rule out pulmonary embolism with that is negative patient will be discharged today. 09/30/2016 Patient mental status remains the same. Patient had elevated d-dimer and tachycardia because of which I did obtain a CT angios of the chest., Reviewed that CAT scan of the chest with the battery assembler to do not believe patient had pulmonary embolism. Although there is a small possible mass in the left upper lobe. For which patient will need to follow with pulmonology Dr. Tucker as an outpatient. Patient blood pressure has gone down to as low as 80 systolic for which we've given a bolus of IV fluid and this is secondary to metoprolol which was given for tachycardia. He is within normal limits and if patient blood pressure is fairly stable patient will be discharged later in the day today to subacute rehabilitation. PHYSICAL EXAMINATION: GENERAL: The patient is alert and oriented x2, not in any acute distress. Well developed, well nourished. HEENT: Pupils are round and equally reacting to light. EOMI. No scleral icterus. No conjunctival pallor. Normocephalic, atraumatic. No pharyngeal erythema. No thyromegaly. CARDIOVASCULAR: S1 and S2 present. No murmurs, rubs, or gallops. PULMONARY: Chest is clear to auscultation, no wheezing or crackles. ABDOMEN: Soft, nontender, nondistended, normoactive bowel sounds. No palpable organomegaly. MUSCULOSKELETAL: No joint swelling or deformity. EXTREMITIES: No cyanosis, clubbing, or pedal edema. NEUROLOGICAL: Gross neurological examination did not reveal any focal deficits. SKIN: No rashes. #1 alcohol intoxication #2 metabolic encephalopathy and toxic encephalopathy from excess alcohol use. Improved patient does have chronic encephalopathy and memory issues secondary to chronic alcoholism and I do not believe high-dose thiamine will and if it is encephalopathy. #3 alcohol withdrawal: Withdrawal symptoms improved patient requirement for Ativan is significantly low #4 anion gap metabolic acidosis: Resolved now #4 alcoholic hepatitis #5 hypomagnesemia: Improved with supplementation #6 ketonuria: Secondary to starvation ketosis #7 macrocytosis secondary to excess alcohol use Patient Condition at Discharge: Fair Plan - Discharge Summary New Discharge Prescriptions: New LORazepam [Ativan] 1 mg PO TID PRN #20 tab PRN Reason: Alcohol Withdrawal Omeprazole [PriLOSEC] 20 mg PO AC-BRKFST #14 day Thiamine [Vitamin B-1] 100 mg PO DAILY #30 tab Discharge Medication List LORazepam [Ativan] 1 mg PO TID PRN #20 tab 09/29/16 [Rx] Omeprazole [PriLOSEC] 20 mg PO AC-BRKFST #14 day 09/29/16 [Rx] Thiamine [Vitamin B-1] 100 mg PO DAILY #30 tab 09/29/16 [Rx] Follow up Appointment(s)/Referral(s): None,Stated [Primary Care Provider] - 1-2 days Kimo Tucker MD [STAFF PHYSICIAN] - 1 Week (lung mass, bronchoscopy as outpatient.) Patient Instructions/Handouts: Abuse of Alcohol (DC) Activity/Diet/Wound Care/Special Instructions: No smoking, cessation information. NO alcohol use, references provided. Low fat diet. Discharge Disposition: TRANSFER TO SNF/ECF
[2016-10-01] MEDS ORDERED: LORazepam 1 MG TAB PO PRN ×2 (04:27→04:38)
[2016-10-01] MEDS: METOPROLOL TARTRATE 25 MG TAB PO SCH (08:24)
[2016-10-01 09:08] VITALS: BP 103/55; PULSE 95; TEMP 97.4
[2016-10-01] MEDS: THIAMINE 100 MG TAB PO SCH (11:37)
--- NOTE | 2016-10-01 14:05 | P.DS ---
Providers Date of admission: 09/26/16 02:35 Attending physician: Melly Moulton Consults: 09/27/16 11:44 Consult Physician Urgent Consulting Provider: Dena Barboza Consult Reason/Comments: confusion/hallucinations, need for guardianship Do you want consulting provider notified?: Yes Primary care physician: Stated None Hospital Course: Please refer to my discharge summary from yesterday for further details. Since patient ended up staying here I did see and examine the patient today. PHYSICAL EXAMINATION: GENERAL: The patient is alert and oriented x2, not in any acute distress. Well developed, well nourished. HEENT: Pupils are round and equally reacting to light. EOMI. No scleral icterus. No conjunctival pallor. Normocephalic, atraumatic. No pharyngeal erythema. No thyromegaly. CARDIOVASCULAR: S1 and S2 present. No murmurs, rubs, or gallops. PULMONARY: Chest is clear to auscultation, no wheezing or crackles. ABDOMEN: Soft, nontender, nondistended, normoactive bowel sounds. No palpable organomegaly. MUSCULOSKELETAL: No joint swelling or deformity. EXTREMITIES: No cyanosis, clubbing, or pedal edema. NEUROLOGICAL: Gross neurological examination did not reveal any focal deficits. SKIN: No rashes. Patient Condition at Discharge: Fair Plan - Discharge Summary New Discharge Prescriptions: New LORazepam [Ativan] 1 mg PO TID PRN #20 tab PRN Reason: Alcohol Withdrawal Omeprazole [PriLOSEC] 20 mg PO AC-BRKFST #14 day Thiamine [Vitamin B-1] 100 mg PO DAILY #30 tab Discharge Medication List LORazepam [Ativan] 1 mg PO TID PRN #20 tab 09/29/16 [Rx] Omeprazole [PriLOSEC] 20 mg PO AC-BRKFST #14 day 09/29/16 [Rx] Thiamine [Vitamin B-1] 100 mg PO DAILY #30 tab 09/29/16 [Rx] Follow up Appointment(s)/Referral(s): None,Stated [Primary Care Provider] - 1-2 days Kimo Tucker MD [STAFF PHYSICIAN] - 1 Week (lung mass, bronchoscopy as outpatient.) Patient Instructions/Handouts: Abuse of Alcohol (DC) Activity/Diet/Wound Care/Special Instructions: [employer] IN [employer]ITY, SLIP ON CHART. No smoking, cessation information. NO alcohol use, references provided. Low fat diet. Discharge Disposition: TRANSFER TO SNF/ECF
== END 2016-10-01 15:38 | DRG 896 ==
LOC: EC 19:55 → EEVIPCON 09-26 02:35 → 4MS4W 09-26 02:35
PROVIDERS: ADMIT Internal Medicine; ATTEND Internal Medicine
DX: F10.221 Alcohol dependence with intoxication delirium (principal); G92 Toxic encephalopathy; E87.2 Acidosis; G31.2 Degeneration of nervous system due to alcohol; K70.10 Alcoholic hepatitis without ascites; F10.231 Alcohol dependence with withdrawal delirium; E83.42 Hypomagnesemia; E86.0 Dehydration; D75.89 Other specified diseases of blood and blood-forming organs; F32.9 Major depressive disorder, single episode, unspecified; F17.200 Nicotine dependence, unspecified, uncomplicated
CPT/HCPCS: 36415; 71020; 71275; 80053; 80306; 81001; 82075; 83605; 83735; 84443; 85025; 85027; 85379; 96365; 96366; 99285

== ENCOUNTER 2016-10-18 19:35 | Emergency (ER) | payer OTHER ==
[2016-10-18 19:47] VITALS: RESP 16
[2016-10-18 20:10] LABS: Basophils # (A) 0.1 k/uL (0-0.2); Basophils % (A) 1 %; CH 33.5; CHCM 32.8; Eosinophils # (A) 0.3 k/uL (0-0.7); Eosinophils % (A) 5 %; HCT 34.6 % (39.0-53.0); HDW 2.32; Luc # (Auto) 0.17; Luc % (Auto) 3; Lymphocytes % (A) 30 %; MCH 32.6 pg (25.0-35.0); MCHC 31.9 g/dL (31.0-37.0); MCV 102.2 fL (80.0-100.0); Macrocytosis Slight; Mean Platelet Volume 8.1; Monocytes # (A) 0.7 k/uL (0-1.0); Monocytes % (A) 10 %; Neutrophils # (A) 3.5 k/uL (1.3-7.7); Neutrophils % (A) 52 %; RBC 3.39 m/uL (4.30-5.90); RDW 14.5 % (11.5-15.5); WBC 6.7 k/uL (3.8-10.6); WBC (Perox) 6.92
[2016-10-18 20:20] LABS: ALT 50 U/L (21-72); AST 25 U/L (17-59); Alkaline Phosphatase 72 U/L (38-126); Amylase 64 U/L (30-110); Anion Gap 8 mmol/L; Blood Urea Nitrogen 13 mg/dL (9-20); Calcium 9.1 mg/dL (8.4-10.2); Carbon Dioxide 23 mmol/L (22-30); Chloride 106 mmol/L (98-107); Glucose 85 mg/dL (74-99); Non-African American GFR(MDRD) >60 (>60 ml/min/1.73 sqM); Potassium 4.4 mmol/L (3.5-5.1); Sodium 137 mmol/L (137-145); Total Bilirubin 0.3 mg/dL (0.2-1.3); Total Protein 6.1 g/dL (6.3-8.2)
--- NOTE | 2016-10-18 20:24 | XR ---
EXAMINATION TYPE: XR chest 2V DATE OF EXAM: 10/18/2016 COMPARISON: 09/25/2016 HISTORY: Chest pain TECHNIQUE: Frontal and lateral views of the chest are obtained. FINDINGS: There is no heart failure nor confluent pneumonic infiltrate. Heart is borderline enlarged . There is no pleural effusion. Bony thorax is intact. IMPRESSION: No active cardiopulmonary disease. Heart appears increased slightly compared to old exam .
[2016-10-18 20:28] LABS: Appearance,Urine Clear (Clear); Bilirubin,Urine Negative (Negative); Glucose,Urine (UA) Negative (Negative); Ketones,Urine Negative (Negative); Leukocyte Esterase,Urine Negative (Negative); Nitrite,Urine Negative (Negative); PH, Urine 6.5 (5.0-8.0); Protein,Urine Negative (Negative); Specific Gravity,Urine 1.006 (1.001-1.035); UA Billing (MACRO vs. MICRO) CHEM; Urobilinogen,Urine <2.0 mg/dL (<2.0)
--- NOTE | 2016-10-18 20:35 | ED ---
Psych HPI - General Chief Complaint: Psychiatric Symptoms Stated Complaint: Mental Health Time Seen by Provider: 10/18/16 19:40 Source: patient, EMS Mode of arrival: EMS Limitations: no limitations - History of Present Illness Initial Comments: This is a 61-year-old male presents emergency department via EMS from [facility] for psychiatric evaluation. Patient reportedly tried to leave the facility stated that he did not want to be there anymore. Patient attempted Aleve again. Patient reportedly told staff that he believes that they're caring guns. Patient denies this. Patient denies any in suicidal or homicidal. Patient states he just does not want to be a [facility]. He states that he does not need to be there. He was placed thereafter discharged from the hospital for alcohol withdrawal metabolic encephalopathy. Patient states she's been much better than it was. Patient states he has not drank any alcohol. - Related Data Home Medications Medication Instructions Recorded Confirmed Acetaminophen [Tylenol] 650 mg PO Q6H PRN 10/18/16 10/18/16 Folic Acid 1 mg PO DAILY 10/18/16 10/18/16 LORazepam [Ativan] 1 mg PO Q6H PRN 10/18/16 10/18/16 Lorazepam 1 mg IM Q6H PRN 10/18/16 10/18/16 Previous Rx's Medication Instructions Recorded Omeprazole [PriLOSEC] 20 mg PO AC-BRKFST #14 day 09/29/16 Thiamine [Vitamin B-1] 100 mg PO DAILY #30 tab 09/29/16 Allergies Allergy/AdvReac Type Severity Reaction Status Date / Time No Known Allergies Allergy Verified 10/18/16 19:59 Review of Systems ROS Statement: Those systems with pertinent positive or pertinent negative responses have been documented in the HPI. ROS Other: All systems not noted in ROS Statement are negative. Past Medical History Additional Past Medical History / Comment(s): Stent placement, incontinent of stool. History of Any Multi-Drug Resistant Organisms: None Reported Past Surgical History: No Surgical Hx Reported Smoking Status: Current every day smoker General Exam General appearance: alert, in no apparent distress Head exam: Present: atraumatic, normocephalic, normal inspection ENT exam: Present: normal exam, normal oropharynx, mucous membranes moist Neck exam: Present: normal inspection. Absent: tenderness, meningismus, lymphadenopathy Respiratory exam: Present: normal lung sounds bilaterally. Absent: respiratory distress, wheezes, rales, rhonchi, stridor Cardiovascular Exam: Present: regular rate, normal rhythm, normal heart sounds. Absent: systolic murmur, diastolic murmur, rubs, gallop, clicks GI/Abdominal exam: Present: soft, normal bowel sounds. Absent: distended, tenderness, guarding, rebound, rigid Back exam: Absent: CVA tenderness (R), CVA tenderness (L) Neurological exam: Present: alert, oriented X3, CN II-XII intact Psychiatric exam: Present: normal affect, normal mood Course Vital Signs 10/18/16 19:36 Temperature 98.3 F Pulse Rate 89 Respiratory 16 Rate Blood Pressure 151/89 O2 Sat by Pulse 98 Oximetry Medical Decision Making - Medical Decision Making 61-year-old sent here for evaluation for psychiatric reasons. Patient saw homicidal or suicidal. Patient readily [facility] he does not want to be there. Patient is anxious about being there. Patient does have a history of alcohol abuse was admitted to the hospital has been sober ever since. Patient's lipase is minimally elevated there is no pain with palpation. Patiently discharged back to [facility] as recommended by psychiatrist. - Lab Data Result diagrams: 10/18/16 20:00 10/18/16 20:00 Lab Results 10/18/16 10/18/16 10/18/16 Range/Units 20:00 20:00 20:15 WBC 6.7 (3.8-10.6) k/uL RBC 3.39 L (4.30-5.90) m/uL Hgb 11.0 L (13.0-17.5) gm/dL Hct 34.6 L (39.0-53.0) % MCV 102.2 H (80.0-100.0) fL MCH 32.6 (25.0-35.0) pg MCHC 31.9 (31.0-37.0) g/dL RDW 14.5 (11.5-15.5) % Plt Count 253 D (150-450) k/uL Neutrophils % 52 % Lymphocytes % 30 % Monocytes % 10 % Eosinophils % 5 % Basophils % 1 % Neutrophils # 3.5 (1.3-7.7) k/uL Lymphocytes # 2.0 (1.0-4.8) k/uL Monocytes # 0.7 (0-1.0) k/uL Eosinophils # 0.3 (0-0.7) k/uL Basophils # 0.1 (0-0.2) k/uL Macrocytosis Slight Sodium 137 (137-145) mmol/L Potassium 4.4 (3.5-5.1) mmol/L Chloride 106 (98-107) mmol/L Carbon Dioxide 23 (22-30) mmol/L Anion Gap 8 mmol/L BUN 13 (9-20) mg/dL Creatinine 0.68 (0.66-1.25) mg/dL Est GFR (MDRD) Af Amer >60 (>60 ml/min/1.73 sqM) Est GFR (MDRD) Non-Af >60 (>60 ml/min/1.73 sqM) Glucose 85 (74-99) mg/dL Calcium 9.1 (8.4-10.2) mg/dL Total Bilirubin 0.3 (0.2-1.3) mg/dL AST 25 (17-59) U/L ALT 50 (21-72) U/L Alkaline Phosphatase 72 (38-126) U/L Total Protein 6.1 L (6.3-8.2) g/dL Albumin 3.5 (3.5-5.0) g/dL Amylase 64 (30-110) U/L Lipase 768 H (23-300) U/L Urine Color Light Yellow Urine Appearance Clear (Clear) Urine pH 6.5 (5.0-8.0) Ur Specific [place] 1.006 (1.001-1.035) Urine Protein Negative (Negative) Urine Glucose (UA) Negative (Negative) Urine Ketones Negative (Negative) Urine Blood Negative (Negative) Urine Nitrite Negative (Negative) Urine Bilirubin Negative (Negative) Urine Urobilinogen <2.0 (<2.0) mg/dL Ur Leukocyte Esterase Negative (Negative) Urine Opiates Screen Not Detected (NotDetected) Ur Oxycodone Screen Not Detected (NotDetected) Urine Methadone Screen Not Detected (NotDetected) Ur Propoxyphene Screen Not Detected (NotDetected) Ur Barbiturates Screen Not Detected (NotDetected) U Tricyclic Antidepress Not Detected (NotDetected) Ur Phencyclidine Scrn Not Detected (NotDetected) Ur Amphetamines Screen Not Detected (NotDetected) U Methamphetamines Scrn Not Detected (NotDetected) U Benzodiazepines Scrn Detected H (NotDetected) Urine Cocaine Screen Not Detected (NotDetected) U Marijuana (THC) Screen Not Detected (NotDetected) Disposition Clinical Impression: Pancreatitis, Anxiety Disposition: HOME SELF-CARE Condition: Stable Instructions: Pancreatitis (ED) Additional Instructions: Please return to the Emergency Department if symptoms worsen or any other concerns. Referrals: None,Stated [Primary Care Provider] - 1-2 days Time of Disposition: 23:25
[2016-10-19 00:34] VITALS: BP 145/78; PULSE 80; TEMP 97.9
== END 2016-10-19 00:34 | disposition home or self-care (01) ==
LOC: EC 19:35
DX: F41.9 Anxiety disorder, unspecified (principal); K85.90 Acute pancreatitis without necrosis or infection, unspecified; R74.8 Abnormal levels of other serum enzymes; R07.9 Chest pain, unspecified; Z79.899 Other long term (current) drug therapy; F17.200 Nicotine dependence, unspecified, uncomplicated
CPT/HCPCS: 36415; 71020; 80053; 80306; 81003; 82075; 82150; 83690; 85025; 99284

== ENCOUNTER → 2016-10-23 | Outpatient (CLI) | payer OTHER ==
--- NOTE | 2016-10-23 12:19 | PE ---
EXAMINATION TYPE: PET CT fusion skull to thigh DATE OF EXAM: 10/23/2016 CLINICAL HISTORY: Solitary pulmonary nodule TECHNIQUE: Following the intravenous administration of 9.22 mCi of F-18 FDG, whole body images are performed from the skull base to the midthigh. Images are reviewed on the computer in the coronal, a xial, and sagittal planes. Reconstructed rotating images are created on independent workstation and reviewed on the computer. A non-contrast CT is performed in conjunction with the PET scan. COMPARISON: CTA chest September 29, 2016. FINDINGS: SKULL BASE AND NECK: No suspicious hypermetabolic uptake is seen in the neck. CHEST, MEDIASTINUM, AND HILAR REGION: There is background of mild to moderate emphysematous change re demonstrated. Previously visualized left upper lobe nodule is diminished in size now measuring 5 x 5 mm on axial image 76. No distinct hypermetabolic uptake is seen currently. No suspicious hypermetabol ic uptake is seen in the thorax. ABDOMEN AND PELVIS: No suspicious hypermetabolic uptake is seen in the abdomen or pelvis. OSSEOUS STRUCTURES: No suspicious hypermetabolic uptake is seen in osseous structures. OTHER CT: There is mild calcified plaque at right carotid bulb. Mild biapical scarring in both lungs. There is mild bibasilar linear scarring in the lung bases near diaphragm. Heart size is upper limits of normal with coronary artery calcification and/or stent RCA distribution felt present. Suspected 4 mm calculus lower pole level right kidney on axial image 170. There is mild to moderate calcified plaque of the abdominal aorta extending into abdominal and pelvic branch vessels. There is some prominence of fecal material in the sigmoid colon with diverticulosis. Nonabsorbed pill is seen on axial image 203. There are multilevel uncovertebral facet degenerative changes in the cervical spine. IMPRESSION: No suspicious hypermetabolic uptake is seen to suggest neoplasm currently. There is mild to moderate emphysematous change with interval decrease in size in left upper lobe nodule. Persistent 5 mm nodule is present. Advise CT follow-up in one year time as per modified 2017 [employer] recommendations.
== END | disposition home or self-care (01) ==
LOC: RADPETMAIN 09:39
PROVIDERS: ATTEND Internal Medicine Critical Care Medicine
DX: R91.1 Solitary pulmonary nodule (principal); J43.9 Emphysema, unspecified
CPT/HCPCS: 78815; A9552